=== PATIENT | female | born 1970 | race Two or more races ===

== ENCOUNTER → 2017-12-17 | Outpatient (CLI) | payer OTHER, MEDICAID, MEDICARE | END | disposition home or self-care (01) | LOC: ECHO 12:13 | DX: R07.9 Chest pain, unspecified (principal) | CPT/HCPCS: 93017; 93350 ==

== ENCOUNTER → 2018-02-19 | Outpatient (CLI) | payer OTHER | END | disposition home or self-care (01) | LOC: MAMMO 08:20 | DX: Z12.31 Encounter for screening mammogram for malignant neoplasm of breast (principal) | CPT/HCPCS: 77063; 77067 ==

== ENCOUNTER 2018-06-17 16:46 | Emergency (ER) | payer OTHER ==
[~2018-06-17] VITALS: Ht 170.2 cm; Wt 86.2 kg
[2018-06-17] MEDS ORDERED: PROCHLORPERAZINE 10 MG/2 ML VIAL. IV ONE (17:30)
[2018-06-17 17:39] LABS: BASO # 0.1 x10^3/uL (0.0-0.2); BASO % 1 % (0-3); EOS # 0.5 x10^3/uL (0.0-0.7); EOS % 6 % (0-3); HEMATOCRIT 43.5 % (36.0-47.0); HEMOGLOBIN 15.4 g/dL (12.0-15.5); LYMPH # 2.4 x10^3/uL (1.0-4.8); LYMPH % 32 % (24-48); MEAN CORPUSCULAR HEMOGLOBIN 33 pg (25-35); MEAN CORPUSCULAR HGB CONC 35 g/dL (31-37); MEAN CORPUSCULAR VOLUME 93 fL (79-100); MONO # 0.5 x10^3/uL (0.0-1.1); MONO % 7 % (0-9); NEUT # 3.9 x10^3uL (1.8-7.7); NEUT % 54 % (31-73); PLATELET COUNT 215 x10^3/uL (140-400); RED CELL DISTRIBUTION WIDTH 12.8 % (11.5-14.5); WHITE BLOOD COUNT 7.3 x10^3/uL (4.0-11.0)
--- NOTE | 2018-06-17 17:50 | PHYS DOC ---
Past Medical History Past Medical History: No Pertinent History Past Surgical History: No Surgical History Alcohol Use: None Drug Use: None Adult General Chief Complaint Chief Complaint: DIZZY/LIGHT HEADED [facility] HPI Patient is a 47 year old female who is presenting with right arm pain described as a numbness and sleepiness sensation to the right arm. She woke up with at around 3 AM she says she also has right-sided neck pain as well as a right-sided headache described as dull and throbbing associated with light sensitivity and nausea. Apparently she has had arm pain and numbness in both arms over the last couple years but it went away for about 6 months he just came back this morning. Patient does not recall any specific trauma she has not had vomiting no fever no chest pain. Symptoms are moderate slowly worsening with time Review of Systems Review of Systems Constitutional: Denies fever or chills [] Eyes: Denies change in visual acuity, redness, or eye pain [] HENT: Denies nasal congestion or sore throat [] Respiratory: Denies cough or shortness of breath [] Cardiovascular: No additional information not addressed in HPI [] GI: Denies abdominal pain, nausea, vomiting, bloody stools or diarrhea [] : Denies dysuria or hematuria [] Musculoskeletal: Denies back pain or joint pain [] Integument: Denies rash or skin lesions [] Neurologic: Denies headache, focal weakness or sensory changes [] Endocrine: Denies polyuria or polydipsia [] All other systems were reviewed and found to be within normal limits, except as documented in this note. Current Medications Current Medications Current Medications Medications (Trade) Dose Ordered Sig/Noel Start Time Stop Time Status Last Admin Dose Admin Prochlorperazine Edisylate (Compazine) 10 mg 1X ONCE 06/17/18 17:30 06/17/18 17:31 DC 06/17/18 17:41 10 MG Allergies Allergies Allergies Coded Allergies Type Severity Reaction Last Updated Verified Penicillins Allergy Intermediate 07/06/14 No Physical Exam Physical Exam Constitutional: Well developed, well nourished, no acute distress, non-toxic appearance. [] HENT: Normocephalic, atraumatic, bilateral external ears normal, oropharynx moist, no oral exudates, nose normal. []There is scalp tenderness noted on the right scalp no erythema was seen Eyes: PERRLA, EOMI, conjunctiva normal, no discharge. [] Neck: There is palpable spasm and mild tenderness to palpation over the trapezius on the right neck. No focal midline tenderness Cardiovascular:Heart rate regular rhythm, no murmur [] Lungs & Thorax: Bilateral breath sounds clear to auscultation [] Abdomen: Bowel sounds normal, soft, no tenderness, no masses, no pulsatile masses. [] Skin: Warm, dry, no erythema, no rash. [] ] Extremities: No tenderness, no cyanosis, no clubbing, ROM intact, no edema. [] Neurologic: Alert and oriented X 3, normal motor function, normal sensory function, no focal deficits noted. []Sensation appears intact to light touch krijeo-[id number]-lzdahs is intact extraocular movements are intact there is no nystagmus cranial nerves are intact Psychologic: Affect normal, judgement normal, mood normal. [] PE by Dr. Julien: Constitutional: Well developed, well nourished, no acute distress, non-toxic appearance. [] HENT: Normocephalic, atraumatic, oropharynx moist Eyes: PERRL, EOMI, conjunctiva normal, no discharge. [] Neck: No focal midline tenderness, mild paraspinal tenderness Skin: Warm, dry, no erythema, no rash. [] Extremities: No tenderness,, ROM intact, no edema. [] Neurologic: Alert and oriented X 3, normal motor function, normal sensory function, no focal deficits noted. Psychologic: Affect normal, judgement normal, mood normal. [] Current Patient Data Vital Signs Vital Signs Date Time Temp Pulse Resp B/P (MAP) Pulse Ox O2 Delivery O2 Flow Rate FiO2 06/17/18 18:57 68 20 95 06/17/18 17:01 98.2 120/63 (82) Room Air 98.2 Lab Values Laboratory Tests Test 06/17/18 17:32 06/17/18 18:03 White Blood Count 7.3 x10^3/uL (4.0-11.0) Red Blood Count 4.70 x10^6/uL (3.50-5.40) Hemoglobin 15.4 g/dL (12.0-15.5) Hematocrit 43.5 % (36.0-47.0) Mean Corpuscular Volume 93 fL (79-100) Mean Corpuscular Hemoglobin 33 pg (25-35) Mean Corpuscular Hemoglobin Concent 35 g/dL (31-37) Red Cell Distribution Width 12.8 % (11.5-14.5) Platelet Count 215 x10^3/uL (140-400) Neutrophils (%) (Auto) 54 % (31-73) Lymphocytes (%) (Auto) 32 % (24-48) Monocytes (%) (Auto) 7 % (0-9) Eosinophils (%) (Auto) 6 % (0-3) H Basophils (%) (Auto) 1 % (0-3) Neutrophils # (Auto) 3.9 x10^3uL (1.8-7.7) Lymphocytes # (Auto) 2.4 x10^3/uL (1.0-4.8) Monocytes # (Auto) 0.5 x10^3/uL (0.0-1.1) Eosinophils # (Auto) 0.5 x10^3/uL (0.0-0.7) Basophils # (Auto) 0.1 x10^3/uL (0.0-0.2) Sodium Level 143 mmol/L (136-145) Potassium Level 3.9 mmol/L (3.5-5.1) Chloride Level 106 mmol/L (98-107) Carbon Dioxide Level 27 mmol/L (21-32) Anion Gap 10 (6-14) Blood Urea Nitrogen 10 mg/dL (7-20) Creatinine 0.7 mg/dL (0.6-1.0) Estimated GFR (Cockcroft-Gault) 89.7 BUN/Creatinine Ratio 14 (6-20) Glucose Level 94 mg/dL (70-99) Calcium Level 9.8 mg/dL (8.5-10.1) Total Bilirubin 0.5 mg/dL (0.2-1.0) Aspartate Amino Transferase (AST) 24 U/L (15-37) Alanine Aminotransferase (ALT) 39 U/L (14-59) Alkaline Phosphatase 110 U/L (46-116) Total Protein 7.6 g/dL (6.4-8.2) Albumin 3.8 g/dL (3.4-5.0) Albumin/Globulin Ratio 1.0 (1.0-1.7) Urine Collection Type Void Urine Color Yellow Urine Clarity Clear Urine pH 6.0 Urine Specific [place] 1.020 Urine Protein Negative mg/dL (NEG-TRACE) Urine Glucose (UA) Negative mg/dL (NEG) Urine Ketones (Stick) Negative mg/dL (NEG) Urine Blood Negative (NEG) Urine Nitrite Negative (NEG) Urine Bilirubin Negative (NEG) Urine Urobilinogen Dipstick 0.2 mg/dL (0.2 mg/dL) Urine Leukocyte Esterase Negative (NEG) Urine RBC 0 /HPF (0-2) Urine WBC 5-10 /HPF (0-4) Urine Squamous Epithelial Cells Few /LPF Urine Bacteria Moderate /HPF (0-FEW) Urine Mucus Slight /LPF Urine Test Negative (NEG) Laboratory Tests 06/17/18 17:32 Laboratory Tests 06/17/18 17:32 EKG EKG [] Interpretation Time: EKG shows a normal sinus rhythm with a rate of 77 there are no acute ischemic changes noted there are some nonspecific flattening anteriorly but no evidence of ischemia seen. Interpreted by me time of encounter Radiology/Procedures Radiology/Procedures PROCEDURE: CT HEAD WO CONTRAST Examination: CT HEAD WO CONTRAST History: headache, right arm numbness, r/o mass/bleed Comparison/Correlation: None Findings: Axial images of the head were obtained without contrast. Ventricles are normal size. No intracranial hemorrhage, midline shift, or mass effect. No depressed fracture or bony destruction. Partial opacification of paranasal sinuses. Impression: No intracranial hemorrhage. Electronically signed by: Syd Azar MD (06/17/2018 6:11 PM) [facility] Course & Med Decision Making Course & Med Decision Making Pertinent Labs and Imaging studies reviewed. (See chart for details) []This is a 47-year-old female with no significant past medical history was presenting with right arm pain and numbness associated with some right neck pain and numbness and also a right headache. Differential would include migraine. Patient has had these symptoms in the past and according to her system has never had brain imaging and so I ordered a CT noncom to rule out a mass much less likely a bleed this does not sound like a subarachnoid hemorrhage. Patient is neurologically intact on physical examination , I really am not concerned about a vascular emergency either. We'll try Compazine , try to improve her headache check basic labs CT head and go from there care will be signed over to Dr. Julien at 6 PM pending completion of workup and final disposition. Janie: Sign out received from Dr. Reyes for patient with report of headache and right arm pain/numbness with neck pain. Headache previously addressed. Labs and CT head pending. Labs reviewed. UA appears more likely contamination vs focal infection. CT head without acute process. Patient seen and evaluated by myself. NIHSS 0. Patient reports interval improvement of symptoms. Patient stable for discharge home with outpatient follow-up with PCP. Discussed findings and plan with patient and family, who acknowledge understanding and agreement. Dragon Disclaimer Dragon Disclaimer This electronic medical record was generated, in whole or in part, using a voice recognition dictation system. Departure Departure Impression: Primary Impression: Headache Additional Impression: Neck pain Disposition: HOME, SELF-CARE Condition: IMPROVED Referrals: ELZA ARTIS (PCP) KALPESH ETIENNE MD Patient Instructions: Cervical Radiculopathy, Vxaq-sa-Sugc, Headache, FAQs Scripts Orphenadrine Citrate (ORPHENADRINE CITRATE) 100 Mg Tablet.er 100 MG PO BID PRN for MUSCLE PAIN, #14 Prov: CHANTAL JULIEN DO 06/17/18 Butalb/Acetaminophen/Caffeine (EKHRXC-OSRFOAYE-EAKB 50-325-40) 1 Each Tablet 1 EACH PO Q6HRS PRN for HEADACHE, #10 TAB Prov: CHANTAL JULIEN DO 06/17/18 NIHSS Stroke Scale NIH Stroke Scale: NIH Stroke Scale Response (Comments) Value Level of Consciousness: 0 Alert/Responsive 0 LOC Questions: 0 Answers both correctly 0 LOC Commands: 0 Performs both tasks 0 Best Gaze: 0 Normal 0 Visual: 0 No visual loss 0 Facial Palsy: 0 Normal, symmetrical 0 Motor - Left Arm 0 No drift 0 Motor - Right Arm 0 No drift 0 Motor - Left Leg 0 No drift 0 Motor: Right Leg 0 No drift 0 Limb Ataxia: 0 Absent 0 Sensory: 0 No loss 0 Best Language: 0 Normal 0 Dysathria: 0 Normal 0 Extinction and Inattention: 0 Normal 0 Total 0 Problem Qualifiers Primary Impression: Headache Headache type: unspecified Headache chronicity pattern: unspecified pattern Intractability: not intractable Qualified Codes: R51 - Headache [place] REYES MD Jun 17, 2018 17:50 CHANTAL JULIEN DO Jun 17, 2018 19:14
[2018-06-17 17:51] LABS: CALCIUM 9.8 mg/dL (8.5-10.1); CREATININE 0.7 mg/dL (0.6-1.0); GFR 89.7; POTASSIUM 3.9 mmol/L (3.5-5.1)
[2018-06-17 17:57] LABS: ALBUMIN 3.8 g/dL (3.4-5.0); TOTAL BILIRUBIN 0.5 mg/dL (0.2-1.0); TOTAL PROTEIN 7.6 g/dL (6.4-8.2)
[2018-06-17 18:10] LABS: BILIRUBIN,URINE NEGATIVE (NEG); CLARITY,URINE CLEAR; COLOR,URINE YELLOW; NITRITE,URINE NEGATIVE (NEG); PROTEIN,URINE NEGATIVE (NEG-TRACE); UROBILINOGEN,URINE 0.2 mg/dL (0.2 mg/dL)
--- NOTE | 2018-06-17 18:15 | RAD ---
Examination: CT HEAD WO CONTRAST History: headache, right arm numbness, r/o mass/bleed Comparison/Correlation: None Findings: Axial images of the head were obtained without contrast. Ventricles are normal size. No intracranial hemorrhage, midline shift, or mass effect. No depressed fracture or bony destruction. Partial opacification of paranasal sinuses. Impression: No intracranial hemorrhage. Electronically signed by: Syd Azar MD (06/17/2018 6:11 PM) [facility]
[2018-06-17 18:40] LABS: U PREG PATIENT NEGATIVE (NEG)
[2018-06-17 18:45] LABS: BACTERIA,URINE MODERATE /HPF (0-FEW); RBC,URINE 0 /HPF (0-2); SQUAMOUS EPITHELIAL CELL,UR FEW /LPF
[2018-06-17 18:57] VITALS: BP 120/58
[2018-06-17] MEDS ORDERED: ORPH100T PO (19:14)
[2018-06-17] MEDS ORDERED: BUTA1TAB23 PO (19:14)
--- NOTE | 2018-06-18 07:35 | EKG ---
[facility] [address] [place] [address] Test Date: 2018-06-17 Test Time: 17:01:01 Pat Name: PERI RAVI Department: Room: Gender: [employer] In[employer]: : 1970 Requested By: [place] GRIER Order Number: [id number] Reading MD: Dorian Childs MD Measurements Intervals Nora Rate: 77 P: 52 GA: 156 QRS: 66 QRSD: 92 T: 32 QT: 376 QTc: 427 Interpretive Statements SINUS RHYTHM Electronically Signed On 06-20-2018 11:50:39 CDT by Doiran Childs MD
== END 2018-06-17 19:20 | disposition home or self-care (01) ==
LOC: ER 16:46
DX: R51 Headache (principal); M54.2 Cervicalgia; R20.0 Anesthesia of skin; R42 Dizziness and giddiness; R11.0 Nausea; M79.601 Pain in right arm; Z88.0 Allergy status to penicillin
CPT/HCPCS: 36415; 70450; 80053; 81001; 81025; 85025; 87086; 93005; 96374; 99285; J0780; 87186

== ENCOUNTER 2018-11-20 20:15 | Emergency (ER) | payer OTHER ==
[~2018-11-20] VITALS: Ht 167.6 cm; Wt 83.9 kg
[~2018-11-20 20:15] MED LIST: BUTA1TAB23 PO; ORPH100T PO
[2018-11-20] MEDS ORDERED: METOCLOPRAMIDE HCL 10 MG/2 ML VIAL. IV ONE (21:45)
[2018-11-20] MEDS ORDERED: IV NORMAL SALINE 1000ML BAG 1,000 ML IV ONE (21:45)
[2018-11-20] MEDS ORDERED: DEXAMETHASONE SOD PHOS 20 MG/5 ML VIAL. IV ONE (21:45)
[2018-11-20] MEDS ORDERED: diphenhydrAMINE 50 MG/ML VIAL IVP ONE (21:45)
[2018-11-20] MEDS ORDERED: BUTORPHANOL 2 MG/ML VIAL. IV ONE (21:45)
--- NOTE | 2018-11-20 22:15 | RAD ---
CT HEAD INDICATION: severe headache, prior sent COMPARISON: 06/17/2018 Exposure: One or more of the following individualized dose reduction techniques were utilized for this examination: 1. Automated exposure control 2. Adjustment of the mA and/or kV according to patient size 3. Use of iterative reconstruction technique TECHNIQUE: 5 mm contiguous axial images were obtained from the skull base to the vertex in both bone and soft tissue algorithm. FINDINGS: No abnormal attenuation within the brain parenchyma. No evidence of acute intracranial hemorrhage. No extra-axial fluid collections. No mass effect or midline shift. Ventricular size is appropriate. Basal cisterns are patent. No fractures identified.Live-white differentiation is preserved.Globes and orbits are within normal limits. Paranasal sinuses and mastoid air cells are clear. IMPRESSION: No acute intracranial findings. Electronically signed by: Darell Estrada MD (11/20/2018 10:12 PM) [facility]
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
[2018-11-20 23:30] VITALS: BP 121/63
[2018-11-20] MEDS ORDERED: HYDR-3164 PO (23:53)
[2018-11-20] MEDS ORDERED: ONDA4TAB7 PO (23:53)
== END 2018-11-20 23:55 | disposition home or self-care (01) ==
LOC: ER 20:15
DX: G43.001 Migraine without aura, not intractable, with status migrainosus (principal); E03.9 Hypothyroidism, unspecified; F32.9 Major depressive disorder, single episode, unspecified; Z88.0 Allergy status to penicillin
CPT/HCPCS: 70450; 81025; 96374; 96375; 99284; J1100; J1200; J2765; J7030

== ENCOUNTER 2018-11-27 11:37 | Emergency (ER) | payer OTHER ==
[~2018-11-27] VITALS: Ht 162.6 cm; Wt 77.1 kg
[~2018-11-27 11:37] MED LIST changes: +HYDR-3164 PO; +ONDA4TAB7 PO
[2018-11-27 11:49] VITALS: BP 108/59
[2018-11-27] MEDS ORDERED: HYDROcodone/APAP 5/325MG 1 TAB TABLET PO ONE (12:15)
[2018-11-27 12:30] LABS: CLARITY,URINE CLOUDY; COLOR,URINE ORANGE
[2018-11-27 12:35] LABS: BACTERIA,URINE MODERATE /HPF (0-FEW); RBC,URINE 0 /HPF (0-2); WBC,URINE TNTC /HPF (0-4)
[2018-11-27 12:36] LABS: SQUAMOUS EPITHELIAL CELL,UR FEW /LPF
[2018-11-27] MEDS ORDERED: PHEN100T82 PO (13:10)
[2018-11-27] MEDS ORDERED: SULF1TAB24 PO (13:10)
[2018-11-27] MEDS ORDERED: HYDR-3164 PO (13:10)
--- NOTE | 2018-11-27 13:10 | PHYS DOC ---
Past Medical History Past Medical History: Depression, Hypothyroid Past Surgical History: Alcohol Use: None Drug Use: None Adult General Chief Complaint Chief Complaint: PAIN ON URINATION HPI HPI Patient is a 48 year old female who presents with complaining of urinary frequency and dysuria for the last 3 days with suprapubic and right flank pain that did not get better with taking [id number] 8. Patient denies history of recent dehydration or UTI and vaginal discharge and bleeding. Patient denies fever and chills, nausea and vomiting, history of frequent UTI. Review of Systems Review of Systems Constitutional: Denies fever or chills [] Eyes: Denies change in visual acuity, redness, or eye pain [] HENT: Denies nasal congestion or sore throat [] Respiratory: Denies cough or shortness of breath [] Cardiovascular: No additional information not addressed in HPI [] GI: Reports lower abdominal pain, denies nausea, vomiting, bloody stools or diarrhea [] : Reports dysuria, denies hematuria Musculoskeletal: Denies back pain or joint pain [] Integument: Denies rash or skin lesions [] Neurologic: Denies headache, focal weakness or sensory changes [] Endocrine: Denies polyuria or polydipsia [] All other systems were reviewed and found to be within normal limits, except as documented in this note. Current Medications Current Medications Current Medications Medications (Trade) Dose Ordered Sig/Noel Start Time Stop Time Status Last Admin Dose Admin Acetaminophen/ Hydrocodone Bitart (Lortab 5/325) 1 tab 1X ONCE 11/27/18 12:15 11/27/18 12:16 DC 11/27/18 12:16 1 TAB Allergies Allergies Allergies Coded Allergies Type Severity Reaction Last Updated Verified Penicillins Allergy Intermediate 07/06/14 No Physical Exam Physical Exam Constitutional: Well developed, well nourished, mild distress, non-toxic appearance. [] HENT: Normocephalic, atraumatic. [] Eyes: PERRLA, EOMI, conjunctiva normal, no discharge. [] Neck: Normal range of motion, no tenderness, supple, no stridor. [] Cardiovascular:Heart rate regular rhythm, no murmur [] Lungs & Thorax: Bilateral breath sounds clear to auscultation [] Abdomen: Bowel sounds normal, soft, no tenderness, no masses, no pulsatile masses. [] Skin: Warm, dry, no erythema, no rash. [] Back: No tenderness, no CVA tenderness. [] Extremities: No tenderness, no cyanosis, no clubbing, ROM intact, no edema. [] Neurologic: Alert and oriented X 3, normal motor function, normal sensory function, no focal deficits noted. [] Psychologic: Affect anxious, judgement normal, mood normal. [] Current Patient Data Vital Signs Vital Signs Date Time Temp Pulse Resp B/P (MAP) Pulse Ox O2 Delivery O2 Flow Rate FiO2 11/27/18 13:14 Room Air 11/27/18 12:16 16 98 11/27/18 11:49 99.1 97 108/59 (75) 99.1 Lab Values Laboratory Tests Test 11/27/18 11:35 Urine Collection Type Unknown Urine Color [place] Urine Clarity Cloudy Urine pH Urine Specific [place] Urine Protein mg/dL (NEG-TRACE) Urine Glucose (UA) mg/dL (NEG) Urine Ketones (Stick) mg/dL (NEG) Urine Blood (NEG) Urine Nitrite (NEG) Urine Bilirubin (NEG) Urine Urobilinogen Dipstick mg/dL (0.2 mg/dL) Urine Leukocyte Esterase (NEG) Urine RBC 0 /HPF (0-2) Urine WBC Tntc /HPF (0-4) Urine Squamous Epithelial Cells Few /LPF Urine Bacteria Moderate /HPF (0-FEW) Urine Mucus Mod /LPF EKG EKG [] Radiology/Procedures Radiology/Procedures [] Course & Med Decision Making Course & Med Decision Making Pertinent Labs reviewed. (See chart for details) discharge: I've spoken with the patient and/or caregivers. I've explained the patient's condition, diagnosis and treatment plan based on information available to me at this time. I've answered the patient's and/or caregivers questions and addressed any concerns. The patient and/or caregivers have a good understanding the patient's diagnosis, condition and treatment plan as can be expected at this point. Vital signs have been stabilized. The patient's condition is stable for discharge from the emergency department. The patient will pursue further outpatient evaluation with her primary care provider or other designated consulting physician as outlined in the discharge instructions. Patient and/or caregivers are agreeable to this plan of care and follow-up instructions have been explained in detail. The patient and/or caregivers have received these instructions in written format and expressed understanding of these discharge instructions. The patient and her caregivers are aware that if any significant change in condition or worsening of symptoms should prompt him to immediately return to this of the closest emergency department. If an emergent department is not readily available I would encourage him to call 911. Glynn Disclaimer Glynn Disclaimer This electronic medical record was generated, in whole or in part, using a voice recognition dictation system. Departure Departure Impression: Primary Impression: Acute cystitis Disposition: HOME, SELF-CARE (at 1306) Condition: IMPROVED Referrals: ELZA ARTIS (PCP) Patient Instructions: Urinary Tract Infection Additional Instructions: Drink plenty of liquids Follow-up with your primary care physician in 3-5 days Return to ER if not getting better Scripts Phenazopyridine Hcl (PYRIDIUM) 100 Mg Tablet 100 MG PO TID for dysuria, #10 TAB Prov: ISABELLE MARTIN MD 11/27/18 Hydrocodone/Apap 5-325 (NORCO 5-325 TABLET) 1 Each Tablet 1 TAB PO PRN Q6HRS PRN for PAIN, #14 TAB 0 Refills Prov: ISABELLE MARTIN MD 11/27/18 Sulfamethoxazole/Trimethoprim (BACTRIM DS TABLET) 1 Each Tablet 1 TAB PO BID for infection, #14 TAB Prov: ISABELLE MARTIN MD 11/27/18 ISABELLE MARTIN MD Nov 27, 2018 13:10
== END 2018-11-27 13:14 | disposition home or self-care (01) ==
LOC: ER 11:37
DX: N30.00 Acute cystitis without hematuria (principal); F32.9 Major depressive disorder, single episode, unspecified; E03.9 Hypothyroidism, unspecified; Z98.890 Other specified postprocedural states; Z88.0 Allergy status to penicillin
CPT/HCPCS: 81001; 87086; 87186; 99283

== ENCOUNTER 2018-11-29 11:13 | Emergency (ER) | payer OTHER ==
[~2018-11-29] VITALS: Ht 162.6 cm; Wt 77.1 kg
[~2018-11-29 11:13] MED LIST changes: +PHEN100T82 PO; +SULF1TAB24 PO
[2018-11-29 11:19] VITALS: BP 109/55
[2018-11-29] MEDS ORDERED: DIPH25CA58 PO (11:43)
[2018-11-29] MEDS ORDERED: PRED50TA PO (11:43)
[2018-11-29] MEDS ORDERED: FAMO20TA5 PO (11:43)
[2018-11-29] MEDS ORDERED: NITR100C63 PO (11:43)
--- NOTE | 2018-11-29 11:44 | PHYS DOC ---
Past Medical History Past Medical History: Depression, Hypothyroid Past Surgical History: Alcohol Use: None Drug Use: None Adult General Chief Complaint Chief Complaint: ALLERGIC REACTION [facility] HPI Patient is a 48 year old female who presents to be evaluated for an allergic reaction, patient was started on Bactrim, Pyridium, hydrocodone 2 days ago, she was being treated for UTI. She started taking the medicine and developed a rash yesterday. The rash is mostly on upper extremities, abdomen and back. Patient denies any anaphylactic type reactions symptoms. Denies any fever nausea/ vomiting. Review of Systems Review of Systems Constitutional: Denies fever or chills [] Eyes: Denies change in visual acuity, redness, or eye pain [] HENT: Denies nasal congestion or sore throat [] Respiratory: Denies cough or shortness of breath [] Cardiovascular: No additional information not addressed in HPI [] GI: Denies abdominal pain, nausea, vomiting, bloody stools or diarrhea [] : Denies dysuria or hematuria [] Musculoskeletal: Denies back pain or joint pain [] Integument: Reports rash Neurologic: Denies headache, focal weakness or sensory changes [] All other systems were reviewed and found to be within normal limits, except as documented in this note. Allergies Allergies Allergies Coded Allergies Type Severity Reaction Last Updated Verified Penicillins Allergy Intermediate 07/06/14 No Physical Exam Physical Exam Constitutional: Well developed, well nourished, no acute distress, non-toxic appearance. [] HENT: Normocephalic, atraumatic, bilateral external ears normal, oropharynx moist, no oral exudates, nose normal. [] Eyes: PERRLA, EOMI, conjunctiva normal, no discharge. [] Neck: Normal range of motion, no tenderness, supple, no stridor. [] Cardiovascular:Heart rate regular rhythm, no murmur [] Lungs & Thorax: Bilateral breath sounds clear to auscultation [] Abdomen: Bowel sounds normal, soft, no tenderness, no masses, no pulsatile masses. [] Skin: Warm, dry, mild amount of erythema is papular rash in patient's abdomen, back, small amount of the same rash on the lateral upper extremities, trace amount on the right lower extremity. Patient is actively itching. Back: No tenderness, no CVA tenderness. [] Extremities: No tenderness, no cyanosis, no clubbing, ROM intact, no edema. [] Neurologic: Alert and oriented X 3, normal motor function, normal sensory function, no focal deficits noted. [] Psychologic: Affect normal, judgement normal, mood normal. [] Current Patient Data Vital Signs Vital Signs Date Time Temp Pulse Resp B/P (MAP) Pulse Ox O2 Delivery O2 Flow Rate FiO2 11/29/18 11:19 98.6 90 18 109/55 (73) 94 Room Air 98.6 EKG EKG [] Radiology/Procedures Radiology/Procedures [] Course & Med Decision Making Course & Med Decision Making Pertinent Labs and Imaging studies reviewed. (See chart for details) This is a 48-year-old female patient who presents to the ED today with allergic reaction to medications. Patient was started on Bactrim, Pyridium, and hydrocodone 2 days ago. She is being treated for UTI. She is non-anaphylactic reaction type symptoms. She was instructed to stop taking the Bactrim and Pyridium and hydrocodone. She was started on MicroBid. She was put on prednisone , Ibuprofen for pain and Benadryl. Follow-up with primary care doctor in 1 week. Dragon Disclaimer Dragon Disclaimer This electronic medical record was generated, in whole or in part, using a voice recognition dictation system. Departure Departure Impression: Primary Impression: UTI (urinary tract infection) Additional Impression: Allergic reaction to drug Disposition: 01 HOME, SELF-CARE Condition: STABLE Referrals: ELZA ARTIS (PCP) follow up in 1 week Patient Instructions: Drug Allergy, Urinary Tract Infection Additional Instructions: You were evaluated in the emergency room for an allergic reaction, stop taking the hydrocodone Bactrim and Pyridium. You can take ibuprofen for pain. Take the prescribed MicroBid for UTI. You can take ibuprofen for pain. Take Benadryl as needed for the rash. Follow-up with your doctor in 1-2 weeks Scripts Diphenhydramine Hcl (BENADRYL) 25 Mg Capsule 1 CAP PO Q6-8HRS PRN for RASH, #30 CAP 1 Refill Prov: MUTUNGA,SILKE [employer] MACHINE OPERATOR 11/29/18 Famotidine (FAMOTIDINE) 20 Mg Tablet 20 MG PO DAILY, #7 TAB Prov: MUTUNGA,SILKE [employer]EV[employer] MACHINE OPERATOR 11/29/18 Prednisone (PREDNISONE) 50 Mg Tablet 1 TAB PO DAILY, #5 TAB Prov: MUTUNGA,SILKE [employer]EV[employer] MACHINE OPERATOR 11/29/18 Nitrofurantoin Macrocrystal (MACRODANTIN) 100 Mg Capsule 1 CAP PO BID, #14 CAP Prov: SILKE PEDRO APRN 11/29/18 Problem Qualifiers Primary Impression: UTI (urinary tract infection) Urinary tract infection type: site unspecified Hematuria presence: without hematuria Qualified Codes: N39.0 - Urinary tract infection, site not specified Additional Impression: Allergic reaction to drug Encounter type: initial encounter Qualified Codes: T78.40XA - Allergy, unspecified, initial encounter SILKE PEDRO APRN Nov 29, 2018 11:44
== END 2018-11-29 12:00 | disposition home or self-care (01) ==
LOC: ER 11:13
DX: L27.0 Generalized skin eruption due to drugs and medicaments taken internally (principal); T37.0X5A Adverse effect of sulfonamides, initial encounter; T39.8X5A Adverse effect of other nonopioid analgesics and antipyretics, not elsewhere classified, initial encounter; T40.2X5A Adverse effect of other opioids, initial encounter; N39.0 Urinary tract infection, site not specified; E03.9 Hypothyroidism, unspecified; F32.9 Major depressive disorder, single episode, unspecified; Z98.890 Other specified postprocedural states; Z88.0 Allergy status to penicillin; Y92.89 Other specified places as the place of occurrence of the external cause
CPT/HCPCS: 99283

== ENCOUNTER 2019-01-20 22:13 | Emergency (ER) | payer OTHER ==
[~2019-01-20] VITALS: Ht 165.1 cm; Wt 77.1 kg
[~2019-01-20 22:13] MED LIST changes: +DIPH25CA58 PO; +FAMO20TA5 PO; +NITR100C63 PO; +PRED50TA PO
[2019-01-20 22:25] VITALS: BP 121/63
[2019-01-20] MEDS ORDERED: ACET-704 PO (22:59)
[2019-01-20] MEDS ORDERED: CEPH-264 PO (22:59)
--- NOTE | 2019-01-20 22:59 | PHYS DOC ---
Past Medical History Past Medical History: No Pertinent History (MARAH MOREJON) Past Surgical History: No Surgical History (MARAH MOREJON) Alcohol Use: None Drug Use: None (MARAH MOREJON) Adult General Chief Complaint Chief Complaint: SORE THROAT HPI HPI Patient is a 48 year old F who is here with 2 d of sore throat, B ear pain, cough and fever. (MARAH MOREJON) Review of Systems Review of Systems Constitutional: Reports fever. HENT: Reports nasal congestion, sore throat and ear pain. Respiratory: Denies cough or shortness of breath Cardiovascular: Denies chest pain GI: Denies abdominal pain, nausea, vomiting, bloody stools or diarrhea Musculoskeletal: Denies back pain or joint pain. Reports myalgias Integument: Denies rash or skin lesions Neurologic: Denies headache, focal weakness or sensory changes All other systems were reviewed and found to be within normal limits, except as documented in this note. (MARAH MOREJON) Current Medications Current Medications Current Medications Medications (Trade) Dose Ordered Sig/Noel Start Time Stop Time Status Last Admin Dose Admin Acetaminophen (Tylenol) 650 mg 1X ONCE 01/20/19 23:00 01/20/19 23:01 DC 01/20/19 23:02 650 MG (NJ GRIER MD) Allergies Allergies Allergies Coded Allergies Type Severity Reaction Last Updated Verified Penicillins Allergy Intermediate 07/06/14 No (NJ GRIER MD) Physical Exam Physical Exam Constitutional: Well developed, well nourished, no acute distress, non-toxic appearance. HENT: Normocephalic, atraumatic, bilateral TM are erythematous, oropharynx moist with R tonsillar exudate, nose normal. Neck: Normal range of motion, no tenderness, supple, no stridor. Cardiovascular:Heart rate regular rhythm, no murmur Lungs & Thorax: Bilateral breath sounds clear to auscultation Abdomen: Bowel sounds normal, soft, no tenderness, no masses, no pulsatile masses. Skin: Warm, dry, no erythema, no rash. Back: No tenderness, no CVA tenderness. Extremities: No tenderness, no cyanosis, no clubbing, ROM intact, no edema. Neurologic: Alert and oriented X 3, normal motor function, normal sensory function, no focal deficits noted. Psychologic: Affect normal, judgement normal, mood normal. (MARAH MOREJON) Current Patient Data Vital Signs Vital Signs Date Time Temp Pulse Resp B/P (MAP) Pulse Ox O2 Delivery O2 Flow Rate FiO2 01/20/19 22:25 102.0 68 17 121/63 (82) 99 Room Air 102.0 (NJ GRIER MD) Lab Values Laboratory Tests Test 01/20/19 22:32 Group A Streptococcus Rapid Negative (NEGATIVE) Microbiology 01/20/19 Throat Culture - Final, Complete 01/20/19 - Final, Complete 01/20/19 - Final, Complete (NJ GRIER MD) Lab Values Laboratory Tests Test 01/20/19 22:32 Group A Streptococcus Rapid Negative (NEGATIVE) (MARAH MOREJON) EKG EKG [] (MARAH MOREJON) Radiology/Procedures Radiology/Procedures [] (MARAH MOREJON) Course & Med Decision Making Course & Med Decision Making Pertinent Labs and Imaging studies reviewed. (See chart for details) Rapid strep is negative. Pt has exudative tonsillitis but without any sign of peritonsillar abscess. Pt has B otitis media as well. Fever here in ER despite Ibuprofen at home. Tylenol given here. She looks like she does not feel well but does not appear toxic. Will cover with antibiotics and have recommended to push fluids, treat fever and follow up closely with PCP. (MARAH MOREJON) Course & Med Decision Making Staff Physician Addendum: I was working in the ER during the course of this patient's visit. I was available for consultation as needed, but I was not directly involved in the care of this patient. (NJ GRIER MD) Dragon Disclaimer Dragon Disclaimer This electronic medical record was generated, in whole or in part, using a voice recognition dictation system. (MARAH MOREJON) Departure Departure Impression: Primary Impression: Exudative tonsillitis Additional Impression: Otitis media Disposition: 01 HOME, SELF-CARE Condition: STABLE Referrals: ELZA ARTIS (PCP) Patient Instructions: Otitis Media, Adult, [id number], Tonsillectomy, Information Before and After Additional Instructions: Treat fever with ibuprofen or tylenol. Gargle with salt water. Rest, push fluids. Scripts Acetaminophen With Codeine (TYLENOL WITH CODEINE #3 TABLET) 1 Each Tablet 1 TAB PO PRN Q6HRS PRN for PAIN, #15 TAB Prov: MARAH MOREJON 01/20/19 Cephalexin (KEFLEX) 500 Mg Capsule 1 CAP PO TID, #30 CAP Prov: MARAH MOREJON 01/20/19 Problem Qualifiers MARAH MOREJON Jan 20, 2019 22:59 NJ GRIER MD Jan 26, 2019 07:47
[2019-01-20] MEDS ORDERED: ACETAMINOPHEN 325 MG TABLET. PO ONE (23:00)
== END 2019-01-20 23:05 | disposition home or self-care (01) ==
LOC: ER 22:13
DX: J03.90 Acute tonsillitis, unspecified (principal); H66.93 Otitis media, unspecified, bilateral; Z88.0 Allergy status to penicillin
CPT/HCPCS: 87070; 87880; 99283

== ENCOUNTER 2019-04-06 05:13 | Emergency (ER) | payer OTHER ==
[~2019-04-06] VITALS: Ht 167.6 cm; Wt 81.6 kg
[~2019-04-06 05:13] MED LIST changes: +ACET-704 PO; +CEPH-264 PO
[2019-04-06 05:45] VITALS: BP 93/61
[2019-04-06] MEDS ORDERED: methylPREDNISolone SOD SUCC PF 125 MG/2 ML VIAL. IM ONE (06:30)
[2019-04-06] MEDS ORDERED: FAMOTIDINE 20 MG TABLET. PO ONE (06:30)
[2019-04-06] MEDS ORDERED: METH4TAB2 PO (06:34)
[2019-04-06] MEDS ORDERED: FAMO-63 PO (06:34)
[2019-04-06] MEDS ORDERED: HYDR25TA PO (06:34)
--- NOTE | 2019-04-06 06:34 | PHYS DOC ---
Past Medical History Past Medical History: Anxiety, Depression Past Surgical History: Alcohol Use: None Drug Use: None Adult General Chief Complaint Chief Complaint: SKIN RASH/ABSCESS HPI HPI Patient is a 48 year old female who presents with complaining of rash. Patient complaining of pruritic rash since last night in belt line area with few area of rash trunk and upper and lower extremities without using new medication, food or detergent. Patient states she had a drug allergic rash several years ago but does not remember height was closed. Patient denies shortness of breath, throat swelling, fever and chills, sick contact, nausea and vomiting, . Review of Systems Review of Systems Constitutional: Denies fever or chills [] Eyes: Denies change in visual acuity, redness, or eye pain [] HENT: Denies nasal congestion or sore throat [] Respiratory: Denies cough or shortness of breath [] Cardiovascular: No additional information not addressed in HPI [] GI: Denies abdominal pain, nausea, vomiting, bloody stools or diarrhea [] : Denies dysuria or hematuria [] Musculoskeletal: Denies back pain or joint pain [] Integument: Reports rash Neurologic: Denies headache, focal weakness or sensory changes [] Endocrine: Denies polyuria or polydipsia [] All other systems were reviewed and found to be within normal limits, except as documented in this note. Current Medications Current Medications Current Medications Medications (Trade) Dose Ordered Sig/Noel Start Time Stop Time Status Last Admin Dose Admin Famotidine (Pepcid) 20 mg 1X ONCE 04/06/19 06:30 04/06/19 06:31 DC 04/06/19 06:32 20 MG Hydroxyzine HCl (Atarax) 25 mg 1X ONCE 04/06/19 06:45 04/06/19 06:45 DC 04/06/19 06:32 25 MG Methylprednisolone Sodium Succinate (SOLU-Medrol 125MG VIAL) 125 mg 1X ONCE 04/06/19 06:30 04/06/19 06:31 DC 04/06/19 06:32 125 MG Allergies Allergies Allergies Coded Allergies Type Severity Reaction Last Updated Verified Penicillins Allergy Intermediate 07/06/14 No Physical Exam Physical Exam Constitutional: Well developed, well nourished, mild distress, non-toxic appearance. [] HENT: Normocephalic, atraumatic. Eyes: PERRLA, EOMI, conjunctiva normal, no discharge. [] Neck: Normal range of motion, no tenderness, supple, no stridor. [] Cardiovascular:Heart rate regular rhythm, no murmur [] Lungs & Thorax: Bilateral breath sounds clear to auscultation [] Skin: Warm, dry, erythematous area of rash on belt line area with patchy heaves on upper and lower extremities Back: No tenderness, no CVA tenderness. [] Extremities: No tenderness, no cyanosis, no clubbing, ROM intact, no edema. [] Neurologic: Alert and oriented X 3, no focal deficits noted. [] Psychologic: Affect normal, judgement normal, mood normal. [] Current Patient Data Vital Signs Vital Signs Date Time Temp Pulse Resp B/P (MAP) Pulse Ox O2 Delivery O2 Flow Rate FiO2 04/06/19 05:45 97.9 73 15 93/61 (72) 98 Room Air 97.9 EKG EKG [] Radiology/Procedures Radiology/Procedures [] Course & Med Decision Making Course & Med Decision Making Evaluation of patient in ER showed 48-year-old female patient presented to ER with pruritic rash since last night without a cause. Patient treated with Solu- Medrol, Pepcid and hydroxyzine ER. Plan discharge patient home with diagnosis of allergic rash. I've spoken with the patient and/or caregivers. I've explained the patient's condition, diagnosis and treatment plan based on information available to me at this time. I've answered the patient's and/or caregivers questions and addressed any concerns. The patient and/or caregivers have a good understanding the patient's diagnosis, condition and treatment plan as can be expected at this point. Vital signs have been stabilized. The patient's condition is stable for discharge from the emergency department. The patient will pursue further outpatient evaluation with her primary care provider or other designated consulting physician as outlined in the discharge instructions. Patient and/or caregivers are agreeable to this plan of care and follow-up instructions have been explained in detail. The patient and/or caregivers have received these instructions in written format and expressed understanding of these discharge instructions. The patient and her caregivers are aware that if any significant change in condition or worsening of symptoms should prompt him to immediately return to this of the closest emergency department. If an emergent department is not readily available I would encourage him to call 911. Glynn Disclaimer Glynn Disclaimer This electronic medical record was generated, in whole or in part, using a voice recognition dictation system. Departure Departure Impression: Primary Impression: Rash due to allergy Disposition: HOME, SELF-CARE (at 0630) Condition: STABLE Referrals: ELZA ARTIS (PCP) Patient Instructions: Rash Additional Instructions: Drink plenty of liquids Follow-up with your primary care physician in 3-5 days Return to ER if not getting better Scripts Famotidine (PEPCID) 20 Mg Tablet 20 MG PO BID, #14 TAB Prov: ISABELLE MARTIN MD 04/06/19 Methylprednisolone (MEDROL) 4 Mg Tab.ds.pk 1 PKG PO UD for inflammation, #1 PKG Prov: ISABELLE MARTIN MD 04/06/19 Hydroxyzine Hcl (HYDROXYZINE HCL) 25 Mg Tablet 1 TAB PO TID PRN for itching, #30 TAB Prov: ISABELLE MARTIN MD 04/06/19 ISABELLE MARTIN MD Apr 06, 2019 06:34
[2019-04-06] MEDS ORDERED: hydrOXYzine 25 MG TABLET PO ONE (06:45)
== END 2019-04-06 06:40 | disposition home or self-care (01) ==
LOC: ER 05:13
DX: T78.40XA Allergy, unspecified, initial encounter (principal); F41.9 Anxiety disorder, unspecified; F32.9 Major depressive disorder, single episode, unspecified; Z98.890 Other specified postprocedural states; Z88.0 Allergy status to penicillin; X58.XXXA Exposure to other specified factors, initial encounter
CPT/HCPCS: 96372; 99283; J2930

== ENCOUNTER 2019-05-19 15:25 | Emergency (ER) | payer OTHER ==
[~2019-05-19] VITALS: Ht 167.6 cm; Wt 81.6 kg
[~2019-05-19 15:25] MED LIST changes: +FAMO-63 PO; +HYDR25TA PO; +METH4TAB2 PO
[2019-05-19 15:37] VITALS: BP 99/51
[2019-05-19] MEDS ORDERED: ORPH100T PO (15:52)
--- NOTE | 2019-05-19 15:52 | PHYS DOC ---
Past Medical History Past Medical History: Anxiety, Depression Past Surgical History: Alcohol Use: None Drug Use: None Adult General Chief Complaint Chief Complaint: UPPER EXTREMITY PAIN HPI HPI Patient is a 48 year old female presents with bilateral arm pain has been ongoing since 2 years ago. The patient states she's been struggling with this for years. States that it comes and goes. Review of Systems Review of Systems Constitutional: Denies fever or chills [] Eyes: Denies change in visual acuity, redness, or eye pain [] HENT: Denies nasal congestion or sore throat [] Respiratory: Denies cough or shortness of breath [] Cardiovascular: No additional information not addressed in HPI [] GI: Denies abdominal pain, nausea, vomiting, bloody stools or diarrhea [] : Denies dysuria or hematuria [] Musculoskeletal: Reports bilateral arm pain. Integument: Denies rash or skin lesions [] Neurologic: Denies headache, focal weakness or sensory changes [] Endocrine: Denies polyuria or polydipsia [] Complete systems were reviewed and found to be within normal limits, except as documented in this note. Allergies Allergies Allergies Coded Allergies Type Severity Reaction Last Updated Verified Penicillins Allergy Intermediate 07/06/14 No Physical Exam Physical Exam Constitutional: Well developed, well nourished, no acute distress, non-toxic appearance. [] HENT: Normocephalic, atraumatic, bilateral external ears normal, oropharynx moist, no oral exudates, nose normal. [] Eyes: PERRLA, EOMI, conjunctiva normal, no discharge. [] Neck: Normal range of motion, bilateral neck trigger points, supple, no stridor. [] Cardiovascular:Heart rate regular rhythm, no murmur [] Lungs & Thorax: Bilateral breath sounds clear to auscultation [] Abdomen: Bowel sounds normal, soft, no tenderness, no masses, no pulsatile masses. [] Skin: Warm, dry, no erythema, no rash. [] Back: No tenderness, no CVA tenderness. [] Extremities: No tenderness, no cyanosis, no clubbing, ROM intact, no edema. [] Neurologic: Alert and oriented X 3, normal motor function, normal sensory function, no focal deficits noted. [] Psychologic: Affect normal, judgement normal, mood normal. [] Current Patient Data Vital Signs Vital Signs Date Time Temp Pulse Resp B/P (MAP) Pulse Ox O2 Delivery O2 Flow Rate FiO2 05/19/19 15:37 97.9 77 16 99/51 (67) 99 Room Air 97.9 EKG EKG [] Radiology/Procedures Radiology/Procedures [] Course & Med Decision Making Course & Med Decision Making Pertinent Labs and Imaging studies reviewed. (See chart for details) Will give norflex in ER and discharge home. Dragon Disclaimer Dragon Disclaimer This electronic medical record was generated, in whole or in part, using a voice recognition dictation system. Departure Departure Impression: Primary Impression: Musculoskeletal neck pain Disposition: HOME, SELF-CARE Condition: STABLE Referrals: ELZA ARTIS (PCP) Patient Instructions: Musculoskeletal Pain Additional Instructions: Thank you for visiting [facility]. We appreciate you trusting us with your care. If any additional problems come up don't hesitate to return to visit us. Please follow up with your primary care provider so they can plan additional care if needed and know about the problem that you had. If symptoms worsen come back to the Emergency Department. Any concerning symptoms that start such as chest pain, shortness of air, weakness or numbness on one side of the body, running high fevers or any other concerning symptoms return to the ER. Please fill your medications at any pharmacy and follow the prescription instructions. Scripts Orphenadrine Citrate (ORPHENADRINE CITRATE) 100 Mg Tablet.er 1 TAB PO BID PRN for MUSCLE PAIN, #15 TAB Prov: CHANTAL URIBE APRN 05/19/19 CHANTAL URIBE APRN May 19, 2019 15:52
[2019-05-19] MEDS ORDERED: ORPHENADRINE CITRATE 60 MG/2 ML VIAL. IM ONE (16:00)
== END 2019-05-19 16:04 | disposition home or self-care (01) ==
LOC: ER 15:25
DX: M54.2 Cervicalgia (principal); M79.601 Pain in right arm; M79.602 Pain in left arm; F41.9 Anxiety disorder, unspecified; F32.9 Major depressive disorder, single episode, unspecified; Z98.890 Other specified postprocedural states; Z88.0 Allergy status to penicillin
CPT/HCPCS: 96372; 99283; J2360